=== PATIENT | female | born 1995 | race Caucasian/White ===

== ENCOUNTER 2019-03-23 23:48 | Inpatient (IN) ==
[2019-03-24] MEDS ORDERED: BUTORPHANOL 2 MG/ML VIAL IV PRN (00:06)
[2019-03-24] MEDS ORDERED: ONDANSETRON 4 MG/2 ML VIAL IV PRN ×2 (00:06→19:24)
[2019-03-24] MEDS: OXYTOCIN/LR 20 UNIT/1,000 ML BAG IV SCH ×2 (00:52→16:15)
[2019-03-24 00:58] LABS: Basophils % 0.3 % (0.0-0.8); Eosinophils # 0.1 10*3/uL (0.0-0.87); Eosinophils % 0.7 % (0.00-10.9); Hemoglobin 10.8 GM/DL (12.0-16.0); Immature Granulocytes % 1.6 %; Lymphocytes # 1.9 10*3/uL (1.4-4.0); Lymphocytes % 15.4 % (21.3-54.2); Mean Corpuscular Volume 80.7 FL (87-102); Mean Platelet Volume 10.5 FL (9.6-12.0); Monocytes % 5.7 % (1.7-12.7); Neutrophils % 76.3 % (38.7-73.9); Platelet Count 308 T/CUMM (130-400); Red Blood Count 4.46 MC/CUMM (3.8-5.5); Red Cell Distribution Width 15.8 % (9.3-17.3); White Blood Count 12.6 T/CUMM (4-12)
[2019-03-24] MEDS ORDERED: LABETALOL 100 MG/20 ML VIAL IV PRN ×2 (02:48)
[2019-03-24] MEDS ORDERED: MAGNESIUM SULF RIDER 4 GM in PREMIX 1 EACH IV ONE (02:48)
[2019-03-24] MEDS ORDERED: LABETALOL 20 MG/4 ML SYRINGE IV PRN (02:48)
[2019-03-24 03:02] LABS: Alanine Aminotransferase 26 U/L (13-56); Albumin 2.5 G/DL (3.4-5.0); Alkaline Phosphatase 152 U/L (45-117); Aspartate Amino Transferase 19 U/L (0-37); Bilirubin,Total < 0.39 MG/DL (0.2-1.0); Blood Urea Nitrogen 8 MG/DL (7-18); Calcium 8.5 MG/DL (8.5-10.1); Glucose 84 MG/DL (74-106); Osmolality,Calculated 271.7 MOS/KG (273-304); Total Protein 6.3 G/DL (6.4-8.3)
[2019-03-24] MEDS: MAGNESIUM SULF DRIP 40 GM/1,000 ML ML IV SCH ×2 (03:32→23:50)
[2019-03-24 04:08] LABS: INR 0.9; PT Patient Result 9.6 SECS; Partial Thromboplastin Time 28.2 SECS (0-40)
[2019-03-24 04:18] LABS: Apearance,Urine CLEAR (Clear); Bacteria,Urine Few /HPF (Few); Bilirubin,Urine Negative (Negative); Blood, Urine Negative (Negative); Glucose,Urine (UA) Negative (Negative); Ketones,Urine 5 mg/dL (Negative); Mucus,Urine Occasional /LPF (Occasional); Nitrite,Urine Negative (Negative); Protein,Urine Negative; RBC,Urine 1 /HPF (0-4); Squamous Epithelial Cell,Urine Occasional /HPF (0-10); Urine Color Straw (Yellow); Urine Specific Gravity 1.006 (1.001-1.035); Urine Urobilinogen < 2.0 EU/DL (0.2-1.0); WBC,Urine 1 /HPF (0-6)
[2019-03-24 04:34] LABS: Bilirubin,Direct < 0.100 MG/DL (0.0-0.20)
[2019-03-24] MEDS ORDERED: NALOXONE 0.4 MG/ML VIAL IV PRN (09:21)
[2019-03-24] MEDS ORDERED: hydrOXYzine HCL 25 MG/1 ML VIAL IM PRN (09:21)
[2019-03-24] MEDS ORDERED: diphenhydrAMINE 50 MG/1 ML VIAL IV PRN ×2 (09:21)
[2019-03-24] MEDS ORDERED: CITRIC ACID/SODIUM CITRATE 30 ML UDCUP PO ONE (09:21)
[2019-03-24] MEDS ORDERED: FAMOTIDINE 20 MG/2 ML VIAL IV ONE (09:21)
[2019-03-24] MEDS ORDERED: PROMETHAZINE 25 MG/1 ML VIAL IM ONE (09:21)
[2019-03-24] MEDS ORDERED: ePHEDrine 50 MG/ML AMP IV PRN (09:21)
[2019-03-24] MEDS ORDERED: LACTATED RINGERS 1,000 ML IV ONE (09:21)
[2019-03-24] MEDS ORDERED: fentaNYL 2 MCG/ROPIV 0.2% EPID 100 ML EPIDURAL SCH (09:30)
[2019-03-24] MEDS: LACTATED RINGERS 1,000 ML IV SCH ×2 (11:31→18:29)
[2019-03-24 11:48] LABS: Apearance,Urine CLEAR (Clear); Bilirubin,Urine Negative (Negative); Blood, Urine Small mg/dL (Negative); Glucose,Urine (UA) Negative (Negative); Ketones,Urine 20 mg/dL (Negative); Mucus,Urine Occasional /LPF (Occasional); Nitrite,Urine Negative (Negative); Protein,Urine Negative; RBC,Urine <1 /HPF (0-4); Urine Color Yellow (Yellow); Urine Specific Gravity 1.012 (1.001-1.035); Urine Urobilinogen < 2.0 EU/DL (0.2-1.0); WBC,Urine <1 /HPF (0-6)
[2019-03-24] MEDS ORDERED: OXYTOCIN/LR 20 UNIT/1,000 ML BAG IV ONE ×2 (18:17→19:24)
[2019-03-24] MEDS ORDERED: ceFAZolin 2,000 MG in PREMIX 1 EACH IV ONE (18:17)
[2019-03-24] MEDS ORDERED: MORPHINE 10 MG/10 ML VIAL ONE (18:31)
[2019-03-24] MEDS ORDERED: LIDOCAINE MPF 2% /EPI 20 ML VIAL ONE (18:31)
[2019-03-24] MEDS ORDERED: RHO(D) IMMUNE GLOBULIN 300 MCG SYRINGE IM ONE (19:24)
[2019-03-24] MEDS ORDERED: ACETAMINOPHEN 325 MG TABLET PO PRN (19:24)
[2019-03-24] MEDS ORDERED: IBUPROFEN 800 MG TABLET PO PRN (19:24)
[2019-03-24] MEDS ORDERED: MIDAZOLAM 2 MG/2 ML VIAL ONE (19:35)
[2019-03-24] MEDS ORDERED: HYDROmorphone 2 MG/1 ML VIAL IV ONE (20:27)
[2019-03-24] MEDS ORDERED: ACETAMINOPHEN 500 MG TABLET PO PRN (20:29)
[2019-03-24] MEDS: KETOROLAC 30 MG/1 ML VIAL IV SCH (21:11)
[2019-03-24] MEDS: DOCUSATE SODIUM 100 MG CAPSULE PO SCH (23:50)
[2019-03-25] MEDS: LACTATED RINGERS 1,000 ML IV SCH ×2 (00:20→10:32)
[2019-03-25] MEDS: ceFAZolin 1,000 MG in SYRINGE 1 EACH IV SCH ×2 (02:00→10:32)
[2019-03-25] MEDS: KETOROLAC 30 MG/1 ML VIAL IV SCH ×3 (02:41→16:02)
[2019-03-25] MEDS: MAGNESIUM SULF DRIP 40 GM/1,000 ML ML IV SCH (03:01)
[2019-03-25] MEDS: MULTIVITAMIN (PRENATAL) TABLET PO SCH (08:21)
[2019-03-25] MEDS: DOCUSATE SODIUM 100 MG CAPSULE PO SCH ×2 (08:21→21:26)
[2019-03-25] MEDS: SIMETHICONE CHEW 80 MG TABLET PO PRN (22:36)
[2019-03-26 05:11] LABS: Basophils # 0.1 10*3/uL (0.0-0.2); Basophils % 0.4 % (0.0-0.8); Eosinophils # 0.1 10*3/uL (0.0-0.87); Eosinophils % 0.8 % (0.00-10.9); Hematocrit 30.5 VOL% (35.7-47.0); Hemoglobin 9.3 GM/DL (12.0-16.0); Immature Granulocytes % 0.6 %; Immature Granulocytes Absolute 0.09 #; Lymphocytes % 14.5 % (21.3-54.2); Mean Corpuscular HGB Conc 30.5 GM/DL (32-36); Mean Corpuscular Volume 81.3 FL (87-102); Mean Platelet Volume 9.6 FL (9.6-12.0); Monocytes % 6.7 % (1.7-12.7); Platelet Count 291 T/CUMM (130-400); Red Blood Count 3.75 MC/CUMM (3.8-5.5); Red Cell Distribution Width 16.4 % (9.3-17.3)
[2019-03-26] MEDS: MULTIVITAMIN (PRENATAL) TABLET PO SCH (09:09)
[2019-03-26] MEDS: DOCUSATE SODIUM 100 MG CAPSULE PO SCH ×2 (09:09→21:14)
[2019-03-26] MEDS: MAGNESIUM HYDROXIDE SUSP 30 ML UDCUP PO PRN ×2 (09:09→21:14)
[2019-03-26] MEDS: SIMETHICONE CHEW 80 MG TABLET PO PRN (09:09)
[2019-03-26] MEDS: LABETALOL 100 MG TABLET PO SCH ×2 (12:14→21:14)
[2019-03-27] MEDS: DOCUSATE SODIUM 100 MG CAPSULE PO SCH (08:54)
[2019-03-27] MEDS: MULTIVITAMIN (PRENATAL) TABLET PO SCH (08:55)
[2019-03-27] MEDS: LABETALOL 100 MG TABLET PO SCH (08:55)
[2019-03-27 10:08] VITALS: BP 102/64
== END 2019-03-27 09:45 | disposition home or self-care (01) | DRG 788 ==
LOC: N.LDOUT 23:48 → N.LD 03-24 → N.OB 03-25 21:16
PROVIDERS: ADMIT Obstetrics & Gynecology; ATTEND Obstetrics & Gynecology
PROC: LDCSECT (ICD-10-PCS; 2019-03-24 19:00)